=== PATIENT | female | born 1970 | race Caucasian/White ===

== ENCOUNTER 2020-10-07 15:29 | Outpatient (REF) | payer SELFPAY | END 2020-10-07 15:30 | disposition home or self-care (01) | LOC: HO.HAP 15:29 | PROVIDERS: Visit Provider Hearing Instrument Specialist | DX: Z13.89 Encounter for screening for other disorder (principal) ==

== ENCOUNTER 2021-02-25 09:10 | Outpatient (REF) | payer SELFPAY ==
--- NOTE | 2021-02-25 09:20 | MHC.AU.P13 ---
Hearing Instrument Problem Date of Visit: 02/25/21 Right Ear: Purchasing Expeditor: Phonak Model: Audeo M50-R Serial Number: [id number] Repair Warranty: 08/13/2022 Battery Size: Rechargeable Color: Sand Beige Focusing Machine Operator: 1P Type of Dome: Small Vented Type of Wax Guard: CeruShield Dispensed By: [facility] Date of Fittin05/29/2019 Left Ear: Purchasing Expeditor: Phonak Model: Audeo M50-R Serial Number: [id number] Repair Warranty: 08/13/2022 Battery Size: Rechargeable Color: Sand Beige Focusing Machine Operator: 1P Type of Dome: Small Vented Type of Wax Guard: CeruShield Dispensed By: [facility] Date of Fittin05/29/2019 Follow-Up Summary: Patient brought in aids-left not working. Both aids cleaned, wax guards changed, small vented domes replaced - both aids now amplifying clearly. Recommendations: Recommendations: Hearing instrument follow-up or maintenance as needed. Signature: Provider: LUIS Mckenzie-HIS
== END 2021-02-25 09:11 | disposition home or self-care (01) ==
LOC: HO.HAP 09:10
PROVIDERS: Visit Provider Internal Medicine
DX: Z46.1 Encounter for fitting and adjustment of hearing aid (principal)
CPT/HCPCS: V5267

== ENCOUNTER 2021-03-05 14:42 | Outpatient (REF) | payer SELFPAY ==
--- NOTE | 2021-03-05 16:26 | MHC.AU.HFU ---
Hearing Instrument Follow-Up- Binaural Date of Visit: 03/05/21 Undercollar Baster Used: Romansh- In Person Right Ear: Form Tamping Machine Operator: Phonak Model: Audeo M50-R Serial Number: [id number] Repair Warranty: 08/13/2022 Loss and Damage Warranty: 08/13/2022 Battery Size: Rechargeable Color: Sand Beige Software Business Analyst: 1P Type of Dome: Small Vented Type of Wax Guard: CeruShield Dispensed By: [facility] Date of Fittin05/29/2019 Left Ear: Form Tamping Machine Operator: Phonak Model: Audeo M50-R Serial Number: [id number] Repair Warranty: 08/13/2022 Loss and Damage Warranty: 08/13/2022 Battery Size: Rechargeable Color: Sand Beige Software Business Analyst: 1P Type of Dome: Small Vented Type of Wax Guard: CeruShield Dispensed By: [facility] Date of Fittin05/29/2019 Follow-Up Summary: Patient reports that despite having the hearing aids cleaned on 02/25, the left aid is intermittent. It doesn't always charge and sometimes it turns off randomly. She also notes that she is not hearing aid well from the left side. Otoscopy was clear. Recommend sending the left aid out for repair, however she is going to [place] soon and wants to wait until she gets back to send the aid for repair. Increased the overall gain of the left aid today and she reported significant improvement in sound quality. Also recommending she get an order for a hearing test from her PCP as it has been 2 years since her last hearing test. Recommendations: Patient will call to schedule a time to drop off the left aid to be sent for repair when she returns for vacation in March. Signature: Provider: Chance Morales, [facility]
== END 2021-03-05 14:43 | disposition home or self-care (01) ==
LOC: HO.HAP 14:42
PROVIDERS: Visit Provider Internal Medicine
DX: Z13.89 Encounter for screening for other disorder (principal)

== ENCOUNTER → 2021-05-21 10:05 | Outpatient (BNVA) | payer BC, SELFPAY | PROVIDERS: PCP Internal Medicine; Visit Provider Physician Assistant ==

== ENCOUNTER → 2021-05-24 07:02 | Outpatient (BNVA) | payer BC, SELFPAY | PROVIDERS: PCP Internal Medicine; Visit Provider Surgery ==

== ENCOUNTER 2021-05-25 08:35 | Outpatient (REF) | payer SELFPAY ==
--- NOTE | ~2021-05-25 | XR_ITS ---
EXAMINATION: XR CHEST CLINICAL INFORMATION: Obesity, unspecified. COMPARISON: None. TECHNIQUE: PA and lateral views of the chest are obtained. FINDINGS: Heart size is within normal limits. There is no congestion or focal consolidation. The bony thorax is unremarkable. XR/XR chest 2V IMPRESSION: Unremarkable examination.
--- NOTE | 2021-05-25 09:32 | ECG_ITS ---
Test Reason : OBESITY Blood Pressure : / mmHG Vent. Rate : 079 BPM Atrial Rate : 079 BPM P-R Int : 126 ms QRS Dur : 080 ms QT Int : 372 ms P-R-T Axes : 046 016 196 degrees QTc Int : 426 ms Normal sinus rhythm Possible Left atrial enlargement Left ventricular hypertrophy with repolarization abnormality Abnormal ECG No previous ECGs available Referred By: Johnathan Andrews Electronically Signed By:MARSHAL MARIE
[2021-05-25 10:32] LABS: MANUAL DIFF FLAG NO
[2021-05-25 10:35] LABS: Basophils Percent Auto 0.4 % (0-2); Eosinophils Absolute Auto 0.1 X10*3/uL (0.0-0.4); Eosinophils Percent Auto 0.7 % (0-4); Hematocrit 38.9 % (37-47); Hemoglobin 12.3 g/dl (12.0-16.0); Imm Gran Abs Auto 0.05 X10*3/uL (0.00-0.03); Imm Gran Pct Auto 0.7 % (0.0-0.4); Lymphocytes Absolute Auto 1.7 X10*3/uL (1.2-4.9); Lymphocytes Percent Auto 24.1 % (20-40); Mean Corpuscular HGB Conc 31.6 g/dl (31.0-35.0); Mean Corpuscular Hemoglobin 26.8 pg (27.0-33.0); Mean Corpuscular Volume 84.7 fL (80-98); Mean Platelet Volume 12.5 fL (9.4-12.3); Monocytes Absolute Auto 0.5 X10*3/uL (0.1-1.2); Monocytes Percent Auto 6.7 % (2-11); Neutrophils Absolute Auto 4.6 X10*3/uL (2.0-8.3); Neutrophils Percent Auto 67.4 % (45-73); Platelet Count 288 X10*3/uL (160-400); Red Blood Count 4.59 X10*6/uL (4.20-5.50); Red Cell Distribution Width 15.3 % (11.0-16.0); White Blood Count 6.8 X10*3/uL (4.8-10.8)
[2021-05-25 10:56] LABS: Alanine Aminotransferase 16 U/L (0-31); Albumin Level 4.2 g/dL (3.5-5.0); Alkaline Phosphatase 81 U/L (39-117); Anion Gap 12 (12-20); Aspartate Amino Transferase 18 U/L (5-31); Bilirubin Total 0.7 mg/dL (0.0-1.0); Blood Urea Nitrogen 14 mg/dL (9-16); C Reactive Protein 0.64 mg/dL (< or = 0.50); Calcium 9.6 mg/dL (8.4-10.2); Carbon Dioxide 26 mmol/L (22-29); Chloride 105 mmol/L (96-108); Cholesterol 250 mg/dL; Estimated Glomerular Filt Rate > 60; Glucose Random 90 mg/dL (60-115); HDL Cholesterol 39 mg/dL; Iron 77 mcg/dL (30-160); LDL Cholesterol Calculated 152 mg/dl; Percent Iron Saturation 23 % (15-50); Sodium 139 mmol/L (135-145); Total Iron Binding Capacity 332 mcg/dL (228-428); Total Protein 7.1 g/dL (6.5-8.0); Triglycerides 295 mg/dL; Unsaturated Iron Binding 255 ug/dL
[2021-05-25 11:17] LABS: TSH reflex Free T4 1.93 uIU/mL (0.32-4.0); Vitamin D 25-OH Total 23.1 ng/mL (>30)
[2021-05-25 11:43] LABS: Folate 17.8 ng/mL (> or = 4.0); Vitamin B12 443 pg/mL (200-900)
[2021-05-25 12:49] LABS: Ferritin 46 ng/mL (10-250)
[2021-05-25 14:33] LABS: Estimated Average Glucose 120 mg/dL; Hemoglobin A1c % 5.8 %
[2021-05-26 12:16] LABS: H Pylori Breath Test DETECTED (NOT DETECTED)
[2021-05-26 22:36] LABS: Insulin Level Total 16.2 uIU/mL
[2021-05-27 13:31] LABS: Calcium (PTHI) 9.5 mg/dL (8.6-10.2); PTHI 47 pg/mL (14-64)
[2021-05-28 00:12] LABS: Zinc 76 mcg/dL (60-130)
[2021-05-28 23:21] LABS: Vitamin A 47 mcg/dL (38-98)
[2021-05-29 11:32] LABS: Vitamin B1 12 nmol/L (8-30)
== END 2021-05-25 08:36 | disposition home or self-care (01) ==
LOC: HO.LAB 08:35
PROVIDERS: Surgery; PCP Internal Medicine; Visit Provider Dietitian, Registered
DX: E66.9 Obesity, unspecified (principal); Z68.38 Body mass index [BMI] 38.0-38.9, adult; K21.9 Gastro-esophageal reflux disease without esophagitis; E78.5 Hyperlipidemia, unspecified; I10 Essential (primary) hypertension; J45.909 Unspecified asthma, uncomplicated
CPT/HCPCS: 36415; 71046; 80053; 80061; 82306; 82607; 82728; 82746; 83013; 83036; 83525; 83540; 83970; 84425; 84443; 84590; 84630; 85025; 86140; 93005; 97802

== ENCOUNTER → 2021-06-14 08:26 | Outpatient (BNVA) | payer BC, SELFPAY | PROVIDERS: PCP Internal Medicine; Referring Provider Surgery; Visit Provider Dietitian, Registered | DX: E66.9 Obesity, unspecified (principal); Z68.37 Body mass index [BMI] 37.0-37.9, adult | CPT/HCPCS: 97803 ==

== ENCOUNTER → 2021-06-18 08:15 | Outpatient (BNVA) | payer BC, SELFPAY | PROVIDERS: PCP Internal Medicine; Visit Provider Surgery ==

== ENCOUNTER → 2021-07-13 08:02 | Outpatient (BNVA) | payer BC, SELFPAY | PROVIDERS: PCP Internal Medicine; Referring Provider Surgery; Visit Provider Dietitian, Registered ==

== ENCOUNTER 2021-08-04 08:05 | Outpatient (REF) | payer BC, SELFPAY | END 2021-08-04 08:06 | disposition home or self-care (01) | LOC: HO.US 08:05 | PROVIDERS: PCP Internal Medicine; Visit Provider Surgery | DX: Z13.89 Encounter for screening for other disorder (principal) ==

== ENCOUNTER 2021-08-16 08:54 | Outpatient (REF) | payer BC, SELFPAY ==
--- NOTE | ~2021-08-16 | FL_ITS ---
EXAMINATION: FL UPPER GI AIR-CONTRAST STUDY CLINICAL INFORMATION: Obesity. COMPARISON: None TECHNIQUE: Routine upper GI air-contrast study was performed in upright and lying position. FINDINGS: Following oral administration of thick barium and effervescent granules, there is normal propagation of bolus from the oral cavity through the pharynx, esophagus into stomach without any evidence of obstruction, narrowing or stricture. On placing patient supine and prone lying, the course, caliber and peristalsis of the stomach, duodenal bulb is normal. There is mild gastroesophageal reflux without hiatal hernia. The rest of the course, caliber and peristalsis of the stomach, duodenal bulb and the sweep is normal. FLUOROSCOPY TIME: 1.9 minutes DOSE AREA PRODUCT: 33.216 uGy-m2 (microgray-meter squared) FL/FL upper GI series IMPRESSION: Unremarkable upper GI air-contrast study.
--- NOTE | ~2021-08-16 | US_ITS ---
EXAMINATION: US COMPLETE ABDOMEN WITH LIVER ELASTOGRAPHY CLINICAL INFORMATION: Obesity. COMPARISON: None. TECHNIQUE: Real-time imaging of the abdominal viscera. Noninvasive ultrasound liver fibrosis assessment is performed using Toi ElastPQ point quantification shear wave elastography (pSWE) with a C5-2 MHz transducer. Multiple elastography samples are obtained. FINDINGS: PANCREAS: The visualized pancreatic head and body are normal in appearance. The remainder of the pancreas is obscured from visualization by the overlying bowel gas. ABDOMINAL AORTA: The proximal and mid aortic segments are normal in caliber. INFERIOR VENA CAVA: Visualized portions are normal. LIVER: The liver demonstrates normal size, contour and increased echogenicity. There is an anechoic cyst right hepatic lobe measuring 1.8 x 1.4 x 1.9 cm. No additional lesions seen. There is no intrahepatic ductal dilatation. The right lobe measures 15.8 cm in length. The left lobe measures 13.3 cm in length. Portal flow is hepatopetal. Shear wave liver elastography median stiffness is 1.45 m/s (reference: normal median stiffness is 1.3 m/s or less). IQR/median stiffness to assess sampling precision is 0.14 (reference: good quality data set is IQR/median stiffness of 0.15 or less). GALLBLADDER: Normal. The gallbladder is physiologically distended without evidence of stones, sludge, polyps, wall thickening or pericholecystic fluid. COMMON BILE DUCT: Normal in caliber measuring 0.3 cm in diameter. RIGHT KIDNEY: Normal. No hydronephrosis. No renal calculi or focal parenchymal lesions. The kidney measures 11.1 cm in maximum dimension. LEFT KIDNEY: There are linear echogenic strands seen in the medulla, question vascular calcification. No hydronephrosis. No renal calculi or focal parenchymal lesions. The kidney measures 10.3 cm in maximum dimension. SPLEEN: Normal. The spleen measures 10.3 cm in maximum dimension. FREE FLUID: None. US/US abdomen comp w elastography IMPRESSION: 1. Mildly echogenic liver with a right hepatic lobe cyst. 2. Mild echogenic linear structures in the left kidney medulla, likely vascular calcifications. 3. Liver elastography: Median liver stiffness measures 1.45 m/s. Findings suggestive of cACLD. REFERENCE: Society of Radiologists in Ultrasound Liver Stiffness Thresholds (2020): LIVER STIFFNESS THRESHOLDS: *Liver Stiffness equal or less than 1.3 m/s: High probability of being normal. *Liver Stiffness less than 1.7 m/s: In the absence of other known clinical signs, rules out compensated advanced chronic liver disease. *Liver Stiffness 1.7-2.1 m/s: Suggestive of compensated advanced chronic liver disease but need further test for confirmation. *Liver Stiffness over 2.1 m/s: Rules in compensated advanced chronic liver disease. *Liver Stiffness over 2.4 m/s: Suggestive of clinically significant portal hypertension. QUALITY OF DATA SET: *IQR/Median value equal or less than 0.15 implies a quality data set. *IQR/Median value over 0.15 implies a poor quality data set. SIGNIFICANT CHANGE FROM PRIOR EXAM: Significant change if liver stiffness measurement is 10% or greater from prior exam. OTHER CONSIDERATIONS: The stage of liver fibrosis may be overestimated in the setting of acute hepatitis, liver inflammation, elevated liver function tests, hepatic vascular congestion, obstructive cholestasis, non-fasting state, and infiltrative diseases such as amyloidosis and lymphoma. In some patients with NAFLD, the liver stiffness thresholds for compensated advanced chronic liver disease may be lower. In causes other than viral hepatitis and NAFLD, liver stiffness thresholds are not well established.
== END 2021-08-16 08:55 | disposition home or self-care (01) ==
LOC: HO.US 08:54
PROVIDERS: PCP Internal Medicine; Visit Provider Surgery
DX: A04.8 Other specified bacterial intestinal infections (principal); E66.9 Obesity, unspecified; Z68.37 Body mass index [BMI] 37.0-37.9, adult; E78.5 Hyperlipidemia, unspecified; I10 Essential (primary) hypertension; J45.909 Unspecified asthma, uncomplicated; K21.9 Gastro-esophageal reflux disease without esophagitis
CPT/HCPCS: 74240; 76705; 76981

== ENCOUNTER 2021-09-14 14:33 | Outpatient (REF) | payer BC, SELFPAY ==
[2021-09-15 12:33] LABS: H Pylori Breath Test Negative (Negative)
== END 2021-09-14 14:34 | disposition home or self-care (01) ==
LOC: HO.LNP 14:33
PROVIDERS: Visit Provider Surgery
DX: Z01.818 Encounter for other preprocedural examination (principal)
CPT/HCPCS: 83013

== ENCOUNTER → 2021-09-15 08:12 | Outpatient (BNVA) | payer BC, SELFPAY | PROVIDERS: PCP Internal Medicine; Referring Provider Internal Medicine; Visit Provider Dietitian, Registered | DX: E66.9 Obesity, unspecified (principal); Z68.37 Body mass index [BMI] 37.0-37.9, adult | CPT/HCPCS: 97803 ==

== ENCOUNTER → 2021-09-20 07:48 | Outpatient (BNVA) | payer BC, SELFPAY | PROVIDERS: PCP Internal Medicine; Visit Provider Surgery ==

== ENCOUNTER → 2021-10-13 13:51 | Outpatient (BNVA) | payer BC, SELFPAY | PROVIDERS: PCP Internal Medicine; Visit Provider Internal Medicine ==

== ENCOUNTER → 2021-10-14 08:12 | Outpatient (BNVA) | payer BC, SELFPAY | PROVIDERS: PCP Internal Medicine; Referring Provider Surgery; Visit Provider Dietitian, Registered ==

== ENCOUNTER → 2021-10-22 07:01 | Outpatient (BNVA) | payer BC, SELFPAY | PROVIDERS: PCP Internal Medicine; Visit Provider Surgery ==

== ENCOUNTER → 2021-11-03 08:31 | Outpatient (BNVA) | payer BC, SELFPAY | PROVIDERS: PCP Internal Medicine; Visit Provider Dietitian, Registered ==

== ENCOUNTER 2021-11-09 15:37 | Outpatient (REF) | payer BC, SELFPAY ==
--- NOTE | 2021-11-09 17:31 | PFT_ITS ---
Forced vital capacity 73, slightly decreased. FEV1 80%, KPQ74-87 is 109%, MVV 86%, all these flow volumes are normal. Bronchodilator therapy, no significant change was noted. Total lung capacity 71%. Residual volume 71%. Diffusion capacity 86%. CONCLUSION: [id number]-[id number] degree of restrictive pulmonary disorder. No significant obstructive airway disorder and no response to bronchodilator therapy. Clinical correlation recommended. MD SALINAS Duke/MODKelley / [id number]
== END 2021-11-09 15:38 | disposition home or self-care (01) ==
LOC: HO.RESP 15:37
PROVIDERS: PCP Internal Medicine; Visit Provider Internal Medicine
DX: R06.00 Dyspnea, unspecified (principal); J45.909 Unspecified asthma, uncomplicated; G47.33 Obstructive sleep apnea (adult) (pediatric)
CPT/HCPCS: 94060; 94727; 94729

== ENCOUNTER → 2021-11-19 08:17 | Outpatient (BNVA) | payer BC, SELFPAY | PROVIDERS: PCP Internal Medicine; Visit Provider Dietitian, Registered | DX: E66.9 Obesity, unspecified (principal) | CPT/HCPCS: 97803 ==

== ENCOUNTER → 2021-11-29 08:07 | Outpatient (BNVA) | payer BC, SELFPAY | PROVIDERS: PCP Internal Medicine; Visit Provider Surgery ==

== ENCOUNTER → 2022-01-03 15:28 | Outpatient (BNVA) | payer BC, SELFPAY | PROVIDERS: PCP Internal Medicine; Visit Provider Internal Medicine | DX: Z13.89 Encounter for screening for other disorder (principal) ==

== ENCOUNTER 2022-03-18 09:06 | Outpatient (REF) | payer SELFPAY | END 2022-03-18 09:07 | disposition home or self-care (01) | LOC: HO.HAP 09:06 | PROVIDERS: Visit Provider Internal Medicine | DX: Z13.89 Encounter for screening for other disorder (principal) ==

== ENCOUNTER → 2022-10-12 15:02 | Outpatient (BNVA) | payer OTHER, SELFPAY | PROVIDERS: PCP Internal Medicine; Visit Provider Internal Medicine | DX: Z13.89 Encounter for screening for other disorder (principal) ==

== ENCOUNTER 2022-10-24 14:31 | Outpatient (REF) | payer OTHER, SELFPAY ==
--- NOTE | 2022-10-25 07:46 | MHC.AU.AHA ---
Adult Audiological Evaluation Date of Visit: 10/24/22 Cutter Gas Used: [place] Phone Cutter Gas #[id number] Reason for Appointment: Audiologic re-evaluation due to reported significant decrease in hearing ability of the left ear with recent severe vertigo. Eileen notes pain on the left side of her head radiating down to the neck. She is now taking 3 Meclizine a day to try to control the vertigo. Despite the increase in medication, symptoms continue and interfering with daily function. Eileen has a long-standing history of asymmetric hearing loss with the most recent hearing test in 2019 showing a mild dropping to profound sensorineural hearing loss for the right ear and a moderate to profound sensorineural hearing loss for the left ear. Unfortunately, speech discrimination testing was not performed at that time and previous test results are not available for review. In 2019, Eileen was seen by ENT Dr. Veto Hector and medically cleared for binaural hearing aids. Eileen reports approximately 9 years ago she was evaluated by the ENT for a lump in the left side of her neck which she was told the lump was benign and no treatment recommended. PCP note indicates a Thyroid Nodule. Other medical history includes Cardiomyopathy, Hypertension, hyperlipidemia, and asthma. Eileen also notes that although she has a problems with vertigo for many years, she has not had a Vestibular Rehabilitation Assessment or other imaging studies of the inner ear/brain. Medical History: Medication List: Per PCP report - Advair Diskus, Albuterol, Amlodipine, Atorvastatin, Clonidine, Doxycycline Hyclate, Escitalopram, Hydrochlorothiazide-Lisinopril, Loratadine, Meclizine, and Lorazepam (PRN) Hearing Instrument History- Right Ear: B Operator: [employer] M 50-R FlyBridGe Serial #[id number] Battery Size: Rechargeable Repair Warranty: 08/13/2022 Loss and Damage Warranty: 08/13/2022 Service Plan: Dispensed By: [facility] Date of Fittin05/29/2019 Hearing Instrument History- Left Ear: B Operator: [employer] M 50-R FlyBridGe Serial #[id number] Battery Size: Rechargeable Warranty: 08/13/2022 Loss and Damage Warranty: 08/13/2022 Service Plan: Dispensed By: [facility] Date of Fittin05/29/2019 Otoscopy: Right Ear: Unremarkable Left Ear: Unremarkable Tympanometry: Tympanometry performed due to: To assess integrity of the middle ear system Right Ear: Normal Middle Ear System (Type A) Left Ear: Normal Middle Ear System (Type A) Hearing Evaluation: Transducer(s) Used: Circumaural Headphones, Bone Conduction Method: Conventional Audiometry Stimuli Used: Pure Tones Right Ear: Description of Hearing: Moderate dropping to profound sensorineural hearing loss with 72% speech understanding at 80 dB HL Left Ear: Description of Hearing: Severe to profound sensorineural hearing loss with 0% speech discrimination ability at 90 and 100 dB HL Binaural speech testing is 64% which suggests there is no significant binaural interference from the left ear. Comparison: Compared to 2019, there is no significant decrease for the right ear hearing. However, left ear thresholds have decreased 15-20 dB at 250-2000 Hz with no speech understanding. Unfortuantely, there are no previous assessments to compare speech discrimination and determine how the left ear understanding has changed over time. Recommendations: Further work-up of the increased vertigo and change in hearing Referral to Ear, Nose, and Throat is strongly recommended with possible Vestibular Testing (VNG or ENG). Referral for Vestibular Rehabilitation Audiological re-evaluation in 6 months. Reminder card will be sent. Hearing aid maintenance performed today. Diagnosis: Primary Diagnosis: H90.3 Bilateral Sensorineural Hearing Loss Secondary Diagnosis: Vertigo Services Performed: Comprehensive Audiological Evaluation (CPT 66998) Tympanometry (CPT 15020) Signature: Provider: Yoselyn Blair, [facility]
== END 2022-10-24 14:32 | disposition home or self-care (01) ==
LOC: HO.SH 14:31
PROVIDERS: Visit Provider Internal Medicine
DX: Z01.118 Encounter for examination of ears and hearing with other abnormal findings (principal); H90.3 Sensorineural hearing loss, bilateral
CPT/HCPCS: 92557; 92567

== ENCOUNTER 2022-12-23 15:01 | Outpatient (REF) | payer SELFPAY ==
--- NOTE | 2022-12-23 15:54 | MHC.AU.HFU ---
Hearing Instrument Follow-Up- Binaural Date of Visit: 12/23/22 Cold Reduction Roller Used: Yes In House [place] Right Ear: Lead Driver: Phonak Brooklyneo M 50-R Sand Beige Serial #[id number] Repair Warranty: 08/13/2022 Loss and Damage Warranty: 08/13/2022 Service Plan: Battery Size: Rechargeable Color: Sand Beige Boat Outboard Engine Mechanic: 1P Type of Dome: Small Vented Type of Wax Guard: CeruShield Dispensed By: [facility] Date of Fittin05/29/2019 Left Ear: Lead Driver: Phonak Brooklyneo M 50-R Sand Beige Serial #[id number] Repair Warranty: 08/13/2022 Loss and Damage Warranty: 08/13/2022 Service Plan: Battery Size: Rechargeable Color: Sand Beige Boat Outboard Engine Mechanic: 1P Type of Dome: Small Vented Type of Wax Guard: CeruShield Dispensed By: [facility] Date of Fittin05/29/2019 Follow-Up Summary: Hearing Aid Problem - Patient reports after the last visit in September 2022, she went to the [facility]. She had a severe sinus infection affecting the left side more than right and was hospitalized for one week. She has an appointment scheduled with ENT of [facility]. In the meantime, she has had greatly fluctuating hearing with intermittent drainage from the right ear and getting significant feedback from the left aid. Otoscopy shows moisture and inflammation in the left ear. Patient insists she cannot go without using the left aid. She also notes the larger medium vented dome placed on the aid last visit is causing ear pressure so she wants to go back to the small vented dome. Cleaned receivers and changed wax guards and domes small vented domes. Because of the significant feedback, I decreased the left aid overall gain 6 dB with some improvement and patient reports improved comfort with the small vented dome. Patient's phone no longer connects with the Integrated biometrics ashwini. I showed her how to Forget Device in the ashwini and re-pair aids with ashwini. Recommendations:: Please contact our clinic with any questions or concerns Diagnosis Code(s):Primary Diagnosis: H90.3 Bilateral Sensorineural Hearing Loss Signature:Provider: Yoselyn Blair, [facility]
== END 2022-12-23 15:02 | disposition home or self-care (01) ==
LOC: HO.HAP 15:01
PROVIDERS: Visit Provider Internal Medicine
DX: Z13.89 Encounter for screening for other disorder (principal)

== ENCOUNTER 2023-10-06 11:55 | Outpatient (REF) | payer SELFPAY | END 2023-10-06 11:56 | disposition home or self-care (01) | LOC: HO.HAP 11:55 | PROVIDERS: Visit Provider Internal Medicine | DX: Z46.1 Encounter for fitting and adjustment of hearing aid (principal); H90.3 Sensorineural hearing loss, bilateral | CPT/HCPCS: V5267 ==

== ENCOUNTER 2024-02-16 10:42 | Outpatient (REF) | payer OTHER, SELFPAY ==
--- NOTE | 2024-02-16 13:35 | MHC.AU.MED ---
Medical Clearance for Hearing Instrumentation Date: 02/16/24 Patient Name: Eileen Dimas Date of : 1970 Primary Care Provider: Loli Morris MD We have seen your patient on 02/16/24 and have determined that they are a candidate for amplification (See accompanying report). Specifically, they would benefit from: Hearing aid use in both ears There is a statute that addresses Medical Evaluation Requirements prior to fitting a patient with a hearing aid. According to [place] statute 265 CMR:6.03(1), (a) General. Except as provided in 265 CMR 6.03(1)(b), a light rail train operator shall not sell a hearing aid unless the prospective user has presented to the light rail train operator a written statement signed by a licensed physician that states that the patient's hearing loss has been medically evaluated and the patient may be considered a candidate for a hearing aid. The medical evaluation must have taken place within the preceding six months. Please note: Due to the [place] Statute referenced above, we cannot accept a signature other than that of a licensed physician. PRINCIPAL NETWORK ARCHITECT and PA signatures cannot be accepted. I am in agreement with the above recommendation. There is no medical contraindication for hearing instrumentation. Physician Signature Date Physician Name (Printed)
--- NOTE | 2024-02-20 12:28 | MHC.AU.HA1 ---
Hearing Aid Evaluation Date of Visit: 02/16/24 Business Strategist Used: Italian- In Person Historical Information: Description of Hearing: Right Ear: Moderate sloping to profound sensorineural hearing loss; Left Ear: Severe to profound sensorineural hearing loss Current personal amplification information: Phonak Audeo M50-Rs fit in May 2019 Summary: Eileen is ready to pursue new hearing aids due to the age of her current pair. She reported her batteries are not lasting as long as they previously did. Her left hearing aid is reportedly muffled and when she increases the volume, it whistles. Eileen is currently using vented domes. Also discussed asymmetric word recognition. Eileen opted to trial same style/senior lead java developer; however, recommended ear molds. Impressions taken, bilaterally, without incident (in hold drawer). Will need to submit for prior approval through insurance once medical clearance is received. Hearing Aid Prescription: Based on the individual?s shared listening needs, communication environments, dexterity, desire for connectivity, and personal preferences, the following prescription for amplification has been made: Right ear: Make, Model, Color: Phonak Audeo L70-R Color: Sand Beige Battery Size: Rechargeable Rn Military/Slim Tube: 1P Type of Earmold/Dome/CShell/SlimTip: c-shell Left ear: Left ear prescription to be same as Right Hearing Aid above: Make, Model, Color: Phonak Audeo L70-R Color: Sand Beige Battery Size: Rechargeable Rn Military/Slim Tube: 1P Type of Earmold/Dome/CShell/SlimTip: c-shell Accessories/Assistive Technology: Shotweld Operator Plan of Care: Patient wishes to purchase hearing aids as prescribed Action Taken/Action Needed: Prior authorization to be requested. Medical Clearance to be requested from PCP/ENT. Hearing Instrument Fitting to be scheduled when materials arrive Primary Diagnosis: H90.3 Bilateral Sensorineural Hearing Loss Signature: Provider: Yoselyn Freeman, [facility]
== END 2024-02-16 10:43 | disposition home or self-care (01) ==
LOC: HO.SH 10:42
PROVIDERS: PCP Internal Medicine; Visit Provider Internal Medicine
DX: Z01.118 Encounter for examination of ears and hearing with other abnormal findings (principal); Z46.1 Encounter for fitting and adjustment of hearing aid; H90.3 Sensorineural hearing loss, bilateral
CPT/HCPCS: 92552; 92556; 92591; V5275

== ENCOUNTER 2024-03-11 13:47 | Outpatient (REF) | payer OTHER, SELFPAY ==
--- NOTE | 2024-03-11 14:45 | MHC.AU.HA2 ---
Hearing Instrument Fitting- Adult- Binaural Date of Visit: 03/11/24 Hearing Instruments Dispensed: Right Ear: Make, Model, Color, Serial Number: Germán Lebrono L70-R SN: [id number] Color: Sand Beige Plumbing And Heating Mechanic Repair Warranty: 04/02/2027 Plumbing And Heating Mechanic Loss and Damage Warranty: 04/02/2027 [facility] Service Plan: 03/11/2025 Battery Size: Rechargeable Call Center Professional/Slim Tube: 1UP Earmold/Dome/CShell/SlimTip: c-shell SN: [id number] Nila: 07/01/2024 Type of Wax Guard: Cerustop Left Ear: Make, Model, Color, Serial Number: Germán Lebrono L70-R SN: [id number] Color: Sand Beige Plumbing And Heating Mechanic Repair Warranty: 04/02/2027 Plumbing And Heating Mechanic Loss and Damage Warranty: 04/02/2027 [facility] Service Plan: 03/11/2025 Battery Size: Rechargeable Call Center Professional/Slim Tube: 1UP Earmold/Dome/CShell/SlimTip: c-shell SN: [id number] Nila: 07/01/2024 Type of Wax Guard: Cerustop Accessories/Assistive Technology: Phonak geophysical observer ease SN: [id number] Summary of Fitting: Ordered power domestic helper for right hearing aid; however, came as UP. Ran feedback analyzer and real ear measures. Comfortable at real ear settings. Some echo of own voice but tolerable. Discussed occlusion with new c-shells (compared to old domes). Other voices perfect and clearer compared to old hearing aids. Eileen is motivated to acclimate to both physical fit and sound quality of new hearing aids. Reviewed care and use including rechargeability, manually turning on/off, and changing wax guards. As a long-time hearing aid user, Eileen is otherwise familiar with general maintenance. Paired to cell phone and [employer]is ashwini. Eileen has old hearing aids to keep as back up. Recommendations: A hearing instrument follow-up was scheduled. Diagnosis Code(s): Primary Diagnosis: H90.3 Bilateral Sensorineural Hearing Loss Signature: Provider: Yoselyn Freeman, [facility]
== END 2024-03-11 13:48 | disposition home or self-care (01) ==
LOC: HO.HAP 13:47
PROVIDERS: Visit Provider Internal Medicine
DX: Z46.1 Encounter for fitting and adjustment of hearing aid (principal); H90.3 Sensorineural hearing loss, bilateral
CPT/HCPCS: V5011; V5020; V5160; V5261; V5264

== ENCOUNTER 2024-04-03 10:05 | Outpatient (REF) | payer OTHER, SELFPAY ==
--- NOTE | 2024-04-03 14:28 | MHC.AU.HA3 ---
Hearing Instrument Follow-Up- Binaural Date of Visit: 04/03/24 Right Ear: Brian, Model, Color, Serial Number: Germán Valle L70-R SN: [id number] Color: Sand Beige Studio Technician Video Operator Repair Warranty: 04/02/2027 Studio Technician Video Operator Loss and Damage Warranty: 04/02/2027 [facility] Service Plan: 03/11/2025 Battery Size: Rechargeable Software Sales Consultant/Slim Tube: 1UP Earmold/Dome/CShell/SlimTip:c-shell SN: [id number] Nila: 07/01/2024 Type of Wax Guard: Cerustop Dispensed By: [facility] Date of Fittin03/11/2024 Left Ear: Brian, Model, Color, Serial Number: Germán Valle L70-R SN: [id number] Color: Sand Beige Studio Technician Video Operator Repair Warranty: 04/02/2027 Studio Technician Video Operator Loss and Damage Warranty: 04/02/2027 [facility] Service Plan: 03/11/2025 Battery Size: Rechargeable Software Sales Consultant/Slim Tube: 1UP Earmold/Dome/CShell/SlimTip: c-shell SN: [id number] Nila: 07/01/2024 Type of Wax Guard: Cerustop Dispensed By: [facility] Date of Fittin03/11/2024 Follow-Up Summary: Eileen was wearing her old hearing aids. Although Eileen noticed significant improvement in her hearing with the new hearing aids, the amount of noise seemed to induce dizziness/vertigo. A few days after being fit with the new hearing aids, she had an episode where she blacked out. When she could see again, the whole room was spinning. Reportedly has had multiple episodes of vertigo since then and consequently could not use the new hearing aids. She reported that she has had these episodes for about two years now with no resolution or diagnosis. Recently, the dizziness has worsened. She also reported the left side of her neck is swollen and she has pain that extends from behind her left ear down into her neck. She also reported her old PCP discovered a ball on the left side of her neck via ultrasound a few years ago. At that time, they were planning to monitor the lump. However, since then, Eileen moved states and changed PCPs and reported she has not had any additional ultrasounds yet. Strongly recommended referral to ENT for noise-induced vertigo with left-sided otalgia. When she was able to wear the hearing aids, the ear molds reportedly slipped out of her ears and she heard a constant static noise in both hearing aids. Could not perform listening check or make programming adjustments today as hearing aids were . Plan to send both hearing aids and c-shells to [facility] to add canal locks to c-shells and change right general studies program chair to P, as originally ordered. Discussed balance between comfort and audibility, especially if too much noise induces dizziness. Eileen reported she would prefer to adjust the left one only as that seems to be the side with the problem - will readdress when hearing aids/cshells return from [facility]. Recommendations: Patient will be contacted when materials have arrived. Diagnosis Code(s): Primary Diagnosis: H90.3 Bilateral Sensorineural Hearing Loss Signature: Provider: Yoselyn Freeman, [facility]
== END 2024-04-03 10:06 | disposition home or self-care (01) ==
LOC: HO.HAP 10:05
PROVIDERS: Visit Provider Internal Medicine
DX: Z13.89 Encounter for screening for other disorder (principal)

== ENCOUNTER 2024-04-24 14:01 | Outpatient (REF) | payer OTHER, SELFPAY | END 2024-04-24 14:02 | disposition home or self-care (01) | LOC: HO.HAP 14:01 | PROVIDERS: Visit Provider Internal Medicine | DX: Z13.89 Encounter for screening for other disorder (principal) ==

== ENCOUNTER 2024-05-09 08:54 | Outpatient (REF) | payer OTHER, SELFPAY | END 2024-05-09 08:55 | disposition home or self-care (01) | LOC: HO.HAP 08:54 | PROVIDERS: Visit Provider Internal Medicine | DX: Z13.89 Encounter for screening for other disorder (principal) ==

== ENCOUNTER 2024-08-06 11:01 | Outpatient (REF) | payer OTHER, SELFPAY | END 2024-08-06 11:02 | disposition home or self-care (01) | LOC: HO.HAP 11:01 | PROVIDERS: Visit Provider Internal Medicine | DX: Z13.89 Encounter for screening for other disorder (principal) ==

== ENCOUNTER 2025-01-03 11:02 | Outpatient (REF) | payer OTHER, SELFPAY ==
--- OUTSIDE RECORDS SUMMARY | 2025-01-03 12:01 | XMS_ITS | Data Portability ---
Author Organization [place] - [facility], Allergy Address [address] [address] Assessment Encounter Date Assessment Date Assessment LastModified by Organization Details LastModified Time 10/04/2024 10/04/2024 53 yo F with hearing loss presents for recurrent vertigo. Had episode over the summer with LOC. Had workup at that time. MRI was limited due to braces. Seen 2019 for vertigo as well. Most recent MRI with contrast in 2018 showed no mass. There is asymmetric hearing loss. I counseled her that a otologic cause of vertigo would not lead to LOC. I did recommend updated MRI with contrast, this may require evaluation with her dentist regarding the braces which limit the exam. We did discuss that her symptoms are suggestive of Meniere's. [email or web address] Not available 10/14/2024 07:54:04 Plan of Treatment Reminders Order Date Submit Date Provider Last Modified By Organization Details Last Modified Time Details Appointments None recorded. Lab None recorded. Referral None recorded. Procedures None recorded. Surgeries None recorded. Imaging MRI, brain + internal auditory canal, w/wo contrast - has braces 2024 025 pgustavson [facility] ([facility]), [address] [facility], [place], [address], 10:00:13 Medication Orders None recorded. Patient TargetsNo targets recorded. Patient InstructionsNo instructions recorded. Reason for Referral None Reported. Results Created Date Observation Date Name Description Value Unit Range Abnormal Flag Note LastModifiedBy Organization Detail LastModifiedTime 10/15/1910/12/2024 MRI, brain + brain stem, w/wo contr ast [facility] Access ion Number : [id number] Patien t Name: Eileen Gutierrez Record Number : [id number] Date of : 1970 Date of Exam: 2024 Referr ing Physic jaswinder: Dhaval Quinonez [facility] [place] [address], [place] [address] [place] [place] [address] Exam: MR Brain (C-/C+ ) CPT 22953 Room Descri ption: [facility] Pion 3T MR Brain (C-/C+ ) CPT 47654 INDICA TION / CLINIC AL QUESTI ON: Reason For Exam: H90.3 - Sensor ineura l hearin g loss, bilate ral, , has braces \E E\[facility] (MRI, BRAIN + CARTRIDGE LOADING OPERATOR AL AUDITO RY CANAL, W/WO CONTRA ST) Reason For Exam: H90.3 - Sensor ineura l hearin g loss, bilate ral, , has braces \E E\[facility] (MRI, BRAIN + CARTRIDGE LOADING OPERATOR AL AUDITO RY CANAL, W/WO CONTRA ST) TECHNI QUE: MRI of the brain with attent ion to the internal affairs investigator al audito ry canals was perfor med with and withou t contra st utiliz ing sagitt al T1, axial T2, 3D axial T2 CUBE, axial and poe l T1, and post-c ontras t axial and poe l T1-jamar ghted sequen karina. 20 mL Dotare m intrav enous contra st was admini stered . COMPAR ADRIANA: None. FINDIN GS: Image qualit y is degrad ed by motion and suscep tibili ty artifa ct. IAC: There is no mass or abnorm al enhanc ement in the internal affairs investigator al audito ry canals or cerebe llopon allen angles . Course and calibe r of the 7th and 8th crania l nerves is normal bilate rally. Fluid signal is preser srinivas in the inner ear struct ures bilate rally. The visibl e portio ns of the brain demons trate demons trate normal signal . Some portio ns are obscur ed by suscep tibili ty artifa ct. BRAIN and EXTRA- AXIAL SPACES : No signif icant abnorm ality of the visual ized portio ns of the brain and extra- axial spaces . EXTRAC RANIAL SOFT TISSUE S: Visual ized portio ns of the extrac ranial soft tissue s are unrema rkable . BONES: Visual ized marrow signal is preser srinivas. IMPRES CECILY: No retroc ochlea r abnorm ality to explai n the patien t?s sympto msPraneeth Bishop onical ly Signed By: Peggy hernandez [facility] ([facility]) [address] [facility] [place], [address], 11/05/2024 16:20:53 Result Notes None recorded. Problems Name Problem SNOMED Code Status Onset Date Resolution Date Notes Provider Name and Address Organization Details Recorded Time Dizziness and giddiness 481915342 Active 2018 Dizziness and giddiness ; Note: Date Diagnosed : 03/26/2019 3:13 PM (R42) Not Available [facility] 4 03:12:31 Inadequat e sleep hygiene 850648728 Active 2019 Inadequat e sleep hygiene; Note: Date Diagnosed : 11/05/2019 11:15 AM (Z72.821) Not Available [facility] 4 03:12:31 Non-toxic uninodula r goiter 367904779 Active 2019 Nontoxic single thyroid nodule; Note: Date Diagnosed : 11/05/2019 11:15 AM (E04.1) Not Available [facility] 4 03:12:31 Abnormal findings on diagnosti c imaging of skull and head 403694089 Active 2022 Abnormal findings on diagnosti c imaging of skull and head, not elsewhere classifie d; Note: Date Diagnosed : 01/18/2023 2:28 PM (R93.0) Not Available [facility] 4 03:12:32 Dyspnea 964372492 Active 2019 Shortness of breath; Note: Date Diagnosed : 11/05/2019 11:15 AM (R06.02) Not Available [facility] 4 03:12:32 Otalgia of left ear 6321388022 Active 2022 Otalgia, left ear; Note: Date Diagnosed : 01/18/2023 2:28 PM (H92.02) Not Available [facility] 4 03:12:32 Sensorine ural hearing loss of bilateral ears 894010621 Active 2018 Sensorine ural hearing loss, bilateral ; Note: Date Diagnosed : 03/26/2019 3:10 PM (H90.3) Not Available [facility] 4 03:12:32 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 Procedures Surgical History Date Name Laterality Status Provider Name and Address Organization Details Recorded Time 10/04/2024 Air & Speech Audio with Tymps (57238, 18211 & 02772) completed SOFYA ATKINS, [facility] [address] [facility],[address], [address], [facility] - [facility] 10/04/2024 15:15:36 Imaging Results Imaging Date Name Status LastModified by Organiz ation Details LastModified Time 10/12/2024 MRI, brain + brain stem, w/wo contrast completed [facility] ([facility]) [address] [place], [address], 11/05/2024 16:20:53 Procedure Notes None recorded. Medical Equipment None Reported. Allergies No known drug allergies Medications Name Sig Start Date Stop Date Status Note LastModified by Organization Details LastModified Time furosemide 40 mg tablet TAKE 1 TABLET BY MOUTH ONCE DAILY active Not Available Not Available No t Available atorvastati n 80 mg tablet TAKE 1 TABLET BY MOUTH ONCE DAILY AT BEDTIME active Not Available Not Available No t Available clonidine HCl 0.1 mg tablet TAKE 1 TABLET BY MOUTH 4 TIMES DAILY active Not Available Not Available No t Available carvedilol 12.5 mg tablet TAKE 1 TABLET BY MOUTH TWICE DAILY active Not Available Not Available No t Available azithromyci n 250 mg tablet TAKE 2 TABLETS BY MOUTH ON DAY 1, AND THEN TAKE 1 TABLET BY MOUTH ONCE A DAY ON DAY 2 THROUGH DAY 5 10/04 completed Not Available Not Available Not Available ibuprofen 800 mg tablet TAKE 1 TABLET BY MOUTH EVERY 8 HOURS active Not Available Not Available No t Available citalopram 10 mg tablet TAKE 1 TABLET BY MOUTH ONCE DAILY active Not Available Not Available No t Available senna 8.6 mg tablet TAKE 2 TABLETS BY MOUTH ONCE DAILY AT BEDTIME NEEDED FOR CONSTIPAT ION active Not Available Not Available No t Available amlodipine 5 mg tablet TAKE 1 TABLET BY MOUTH ONCE DAILY active Not Available Not Available No t Available aspirin 81 mg tablet,stephon yed release TAKE 1 TABLET BY MOUTH ONCE DAILY active Not Available Not Available No t Available amoxicillin 500 mg tablet TAKE 2 TABLETS BY MOUTH EVERY 8 HOURS FOR 5 DAYS 10/04 completed Not Available Not Available Not Available hydromorpho ne 2 mg tablet TAKE 1 TABLET BY MOUTH EVERY 4 HOURS NEEDED FOR PAIN FOR SEVERE POST-OPER ATIVE PAIN active Not Available Not Available No t Available meclizine 25 mg tablet TAKE 1 TABLET BY MOUTH THREE TIMES DAILY NEEDED FOR DIZZINESS active Not Available Not Available No t Available Ear Drops (carbamide peroxide) 6.5 % INSTILL 5 DROPS INTO EACH EAR TWICE DAILY FOR 4 DAYS 10/04 completed Not Available Not Available Not Available Vivelle-Dot 0.0375 mg/24 hr transdermal patch active Not Available Not Available Not Available Vivelle-Dot 0.05 mg/24 hr transdermal patch APPLY 1 PATCH TOPICALLY EVERY MONDAY AND EVERY MONDAY active Not Available Not Available No t Available omeprazole 20 mg capsule,del ayed release TAKE 1 CAPSULE BY MOUTH ONCE DAILY active Not Available Not Available No t Available polyethylen e glycol 3350 17 gram/dose oral powder MIX 17 GRAMS OF POWDER IN 8 OUNCES OF WATER AND DRINK ONCE DAILY active Not Available Not Available No t Available lisinopril 40 mg tablet TAKE 1 TABLET BY MOUTH ONCE DAILY active Not Available Not Available No t Available ondansetron 4 mg disintegrat ing tablet DISSOLVE 1 TABLET IN MOUTH EVERY 8 HOURS NEEDED FOR NAUSEA FOR UP TO 7 DAYS. HOLD UNDER TONGUE AND ALLOW TABLET TO DISINTEGR ATE active Not Available Not Available No t Available fluticasone propionate 50 mcg/actuati on nasal spray,suspe nsion USE 1 SPRAY(S) IN EACH NOSTRIL TWICE DAILY active Not Available Not Available No t Available Ventolin HFA 90 mcg/actuati on aerosol inhaler INHALE 2 PUFFS BY MOUTH 4 TIMES DAILY NEEDED FOR WHEEZING active Not Available Not Available No t Available simethicone 80 mg chewable tablet TAKE 1 TABLET BY MOUTH 4 TIMES DAILY NEEDED FOR GAS active Not Available Not Available No t Available Vitals Date Recorded Body height Body mass index (BMI) Body weight Provider Name and Address Organization Details Last Updated DateTime 10/04/2024 157.48 cm 41.1 kg/m2 809357.49 g Ann Gates [place] - [facility] 10/04/2024 15:36:05 Social History None recorded. Functional Status None recorded. Mental Status None recorded. Family History Nothing Reported. Medical History Condition Response Cancer Y Hypertension Y Asthma Y Gynecological HistoryNo gynecological history recorded. Obstetrics History GPAL:G 0 P 0 0 0 0 Past Encounters Encounter ID Performer Location Encounter Start Date Encounter Closed Date Diagnosis/Indication Diagnosis SNOMED-CT Code Diagnosis ICD10 Code Diagnosis Note [id number] DHAVAL FINNEGAN MD [facility] [address] [address] 10/04/2024 15:10:10 10/04/2024 16:02:41 Dizziness and giddiness 884605053 R42 Sensorineu ral hearing loss of bilateral ears 702889393 H90.3 Right Ear:Mild to profound SNHL with good speech discrimina tion.Type A tympanogra m.Left Ear:Severe to profound SNHL with no speech discrimina tion.Type A tympanogra m. Health Concerns Section Related Observation LastModified by Organization Detai ls LastModified Time None Recorded Concern Status LastModified by Organization Details LastModified Time None Recorded Advance Directives Directive None Recorded Payers Encounter Date Sequence Insurance Name Policy Number Policy Ng Covered Member ID Ng Member ID Guarantor Name 10/04/[address] [place] [address] [id number] Eileen Cee [id number] Eileen Cee Notes Date Note Type Note Provider Name and Address Organization Details Recorded Time 10/04/2024 text/html 53 yo F with candace tigo, Was told she can't get MRI until braces are out (3 more years) Getting vertigo causing unconsciousness went to the hospital over the summer Last time with spinning vertigo over the summer Previously once a year, now twice in quick succession ?Meniere's? PV (2022, Dr. Mccartney) I saw her in 2019 for a tongue ulcer which resolved. she pretenses today for f/u of left sinus findings on imaging done during a recent hospitalization in September. InJanuary she presented to the hospital with dizziness. She had a head CT which showed bilateral ethmoid sinus opacification L>R and diffuse soft tissue obstructionof the left OMU. MRI the same day showed mild sinus disease on the left and no suspicious nasal cavity mass. Today she reports pain the left side of her facewhich radiates to her left ear. She does not smoke. She was treated with abx for sinusitis and reports that it helped but the symptoms have recurred.Exam was benign. Nasal endo was notable for left septal deviation but no polyps or purulence. Larynx was normal. I recommend a dedicated sinus CT (had headCT prior) to assess for chronic sinusitis or interval improvement. We obtained a CT which showed resolution of her prior left maxillary and ethmoid opacification.Her left otalgia has no clear cause. I reviewed her prior imaging as well including head CT, brain MRI, head and neck MRI all of which showed no tumors. Herotalgia is likely due to neuropathic pain or migraine. I suggested she discuss this with her PCP. (2018 Dr. Mccartney) Ms. Richard Cee is a 48 year old female who presents with hearing loss and dizziness. The patient reports a family history ofhearing loss, including her son who has been wearing hearing aids since the age of 9. She had hearing loss occur gradually over time. The patientdoes not report any ear infections. She has had some otorrhea bilaterally. The patient had vertigo, where the room spins every few months, the lastepisode being a month ago. She had an MRI of the brain done at [facility] recently. MRI of the brain with contrast performed in December 2017 was negative for intracranial pathology.History of tongue surgery performed at the age of 7 in [place] for cancer. DHAVAL FINNEGAN MD [address] [place] [address], [phone], [facility] - [facility] 10/14/2024 07:55:10 OBGyn Episode No OBEpisode recorded.
--- OUTSIDE RECORDS SUMMARY | 2025-01-03 12:01 | XMS_ITS ---
Author Name [facility] Organization Unknown Care Team Organization Name Specialty Phone Email Start Date End Da te [employer] 07/09/2022 0 05/13/2024
--- OUTSIDE RECORDS SUMMARY | 2025-01-03 12:01 | XMS_ITS | Clinical Summary ---
Author Organization [facility] Facility Address [address] [place] [address], [place] [address] Care Team Providers Care Library Supervisor Name Role Phone Loli Morris MD Primary Care Provider Allergies No known active allergies Medications EQ Pain Reliever 500 MG tablet TAKE 2 TABLETS BY MOUTH EVERY 8 HOURS 10/28/2022 Active cloNIDine (CATAPRES) 0.3 MG tablet Take 0.3 mg by mouth in the morning and 0.3 mg in the evening. 10/23/2022 Active fluticasone (FLONASE) 50 MCG/ACT nasal spray USE 2 SPRAY(S) IN EACH NOSTRIL ONCE DAILY 10/28/2022 Active lisinopril 20 MG tablet Take 20 mg by mouth 1 (one) time each day 10/28/2022 Active omeprazole (PriLOSEC) [address] capsule Take 20 mg by mouth 1 (one) time each day 10/28/2022 Active amLODIPine (NORVASC) 10 MG tablet Take 1 tablet (10 mg total) by mouth 1 (one) time each day 90 tablet 3 01/02/2023 Active Active Problems Problem Noted Date Diagnosed Date Hypertension 01/02/2023 Family History Medical History Relation Comments Heart attack Brother Heart attack Mother Relation Status Comments Brother Mother Social History Tobacco Use Types Packs/Day Years Used Date Smoking Tobacco: Never Passive Smoke Exposure: Never Smokeless Tobacco: Never Tobacco Cessation:Counseling Given: No Alcohol Use Standard Drinks/Week Comments Never 0 (1 standard drink = 0.6 oz pur e alcohol) Comments Unknown Sex and Gender Information Value Date Recorded Sex Assigned at Not on file Legal Sex Female 8:27 AM EST Gender Identity Not on file Sexual Orientation Not on file Last Filed Vital Signs Vital Sign Reading Time Taken Comments Blood Pressure 170/88 01/02/2023 2:03 PM EDT Pulse 86 01/02/2023 2:03 PM EDT Temperature - - Respiratory Rate - - Oxygen Saturation 98% 01/02/2023 2:03 PM EDT Inhaled Oxygen Concentration - - Weight 95.3 kg (210 lb) 01/02/2023 2:03 PM EDT Height - - Body Mass Index - - Plan of Treatment Health Maintenance Due Date Last Done Comments Breast Cancer Screening 1970 Pneumococcal Vaccine: Peds ( 0 to 5 Years) and At-Risk Patients (6 to 49 Years) (1 of 2 - PCV) 1978 Hepatitis B Vaccine (1 of 3 - 19+ 3-dose series) 12/16 Colorectal Cancer Screening: Annual FOBT 2021 Colorectal Cancer Screening: Colonoscopy 2021 Colorectal Cancer Screening: Sigmoidoscopy 2021 Influenza Vaccine (Season Ended) 2025 Care Teams Library Supervisor Relationship Specialty Start Date End Date Loli Morris MD [address] [place] [id number] PCP - General Internal Medicine 10/27/22
--- OUTSIDE RECORDS SUMMARY | 2025-01-03 12:01 | XMS_ITS | Clinical Summary ---
Author Organization [address] [place] [address] Address [address] [place] [address] Phone Care Team Providers Care Battalion Fire Chief Name Role Phone Loli Morris MD Primary Care Provider Allergies No known active allergies Medications albuterol 2.5 mg /3 mL (0.083 %) nebulizer solution Take 1 Vial by nebulization every 6 hours. Active albuterol sulfate (ProAir RespiClick) 90 mcg/actuation aerosol powdr breath activated Inhale 108 mcg into the lungs every 6 hours as needed (wheezing). 9 Active amLODIPine (NORVASC) 10 mg tablet Take 10 mg by mouth daily. Active budesonide-formo teroL (SYMBICORT) 160-4.5 mcg/actuation inhaler Inhale 2 Puffs into the lungs 2 times daily. Active escitalopram (LEXAPRO) 10 mg tablet Take 1 Tab by mouth daily. 9 Active fluticasone-salm eterol (ADVAIR DISKUS) 250-50 mcg/dose diskus inhaler Inhale 1 Puff into the lungs every 12 hours. Active lisinopril-hydro CHLOROthiazide (PRINZIDE,ZESTOR ETIC) 20-25 mg per tablet Take 2 tablets by mouth daily. 9 Active loratadine 10 mg capsule Take 1 Cap by mouth daily as needed (allergy). 9 Active meclizine (ANTIVERT) 25 mg tablet Take 1 tablet by mouth 2 times daily. Active meloxicam (MOBIC) 15 mg tablet Take 1 tablet by mouth daily. Active omeprazole (PriLOSEC) [address] capsule Take by mouth. Take 1 capsule by mouth daily 4 Active silver sulfADIAZINE (SSD) 1 % cream Apply topically 1 (one) time each day. 50 g 5 026 Active Active Problems Problem Noted Date Diagnosed Date Palpitation 06/23/2021 Overview (07/01/2024): Last Assessment & Plan: We did discuss her palpitations. Is unclear what the etiology of these are. She has them quite often and does feel symptomatic with these. We did discuss doing a 24-hour Holter monitor for further evaluation of these. 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 She is on a max dose of Lipitor. We did discuss adding Zetia 10 mg to see if this will help get her numbers at goal. We did discuss the side effects of this. If she has any she will let us know. If she tolerates this we will recheck a lipid panel in 2 to 3 months time. Hypertension 02/14/2018 Overview (07/01/2024): Last Assessment & Plan: Her blood pressure is elevated here. She gets high readings at home. Have asked her to bring her cuff in next time so we can verify the accuracy of her cuff. We are likely going to need to make adjustments in her blood pressure medication to get her blood pressure under better control. I will make these changes once we have more information on her Holter monitor and echocardiogram so we can direct her therapy based on these findings. She will continue to work on diet exercise and low salt intake. Asthma 12/27/2017 Cardiomegaly 06/06/2017 Overview (07/01/2024): Last Assessment & Plan: She does have a report of having an enlarged heart based on a chest x-ray. This is not a very accurate way to determine this or make this diagnosis. We did discuss doing an echocardiogram to further evaluate this. She did have an echocardiogram in 2017 which showed LVH. She does have a history of longstanding high blood pressure and this is likely the cause of these findings. Again the echocardiogram will give us more information on the size of her left ventricle pumping function and wall thickness. She has no evidence of heart failure or volume overload at this time. Anxiety 04/28/2017 Tongue cancer ([facility] V24, [facility] V28) 016 Encounters Date Type Department Care Team Description 12/23/2024 1:45 PM EDT Consult Orthopedic Surgery - [address] [address] Drake Lloyd DPM Cellulitis of right foot (Primary Dx); Ingrown right greater toenail from Last 3 Months Immunizations Name Administration Dates Next Due Pneumococcal conjugate 13 va lent (Prevnar 13, PCV13) 2mo and older 11/14/2016 Surgical History Surgery Date Site/Laterality Comments SECTION PROCEDURE: HISTORICAL HYSTERECTOMY PROCEDURE: HISTORICAL HYSTERECTOMY OTHER SURGICAL HISTORY PROCEDURE: [place] BIOPSY VESTIBULE MOUTH; COMMENT: Tongue biopsy sample Medical History Medical History Date Comments Hypertension 02/14/2018 DX:Hypertension Hyperlipidemia 02/14/2018 DX:Hyperlipidemi a Anxiety 04/28/2017 DX:Anxiety Asthma 12/27/2017 DX:Asthma Cardiomegaly 06/06/2017 DX:Cardiomegaly Seasonal allergic rhinitis 04/12/2018 DX:Se asonal allergic rhinitis Tongue cancer ([facility] V24, [facility] V28) 11/20/19 16 DX:Tongue cancer (HCC) Family History Medical History Relation Name Comments Diabetes Aunt Hypertension Brother stroke Coronary artery disease Father Hypertension Father stroke Asthma Son Relation Name Status Comments Aunt Brother Father Son Social History Tobacco Use Types Packs/Day Years Used Date Smoking Tobacco: Never Smokeless Tobacco: Never Alcohol Use Standard Drinks/Week Comments No 0 (1 standard drink = 0.6 oz pur e alcohol) Comments Unknown Sex and Gender Information Value Date Recorded Sex Assigned at Not on file Legal Sex Female 3:30 AM EST Gender Identity Not on file Sexual Orientation Not on file Obstetrics History Last Filed Vital Signs Vital Sign Reading Time Taken Comments Blood Pressure 172/62 05/27/2024 11:33 AM EDT L Arm Pulse 104 05/27/2024 11:33 AM EDT Temperature - - Respiratory Rate - - Oxygen Saturation - - Inhaled Oxygen Concentration - - Weight 101 kg (222 lb) 12/23/2024 2:17 PM EDT Height 157.5 cm (5' 2 ) 12/23/2024 2:17 PM EDT Body Mass Index 40.6 12/23/2024 2:17 PM EDT Plan of Treatment Upcoming Encounters Date Type Department Care Team ([facility] st Contact Info) Description 01/14/2025 10:45 AM EDT Office Visit Orthopedic Surgery - [place] [address] [facility] [address] [place] [phone] Drake Lloyd, NINO 175 [facility] [address] [place] [address] Health Maintenance Due Date Last Done Comments Breast Cancer Screening 1972 Hepatitis A Vaccines (1 of 2 - Risk 2-dose series) 12/17/1991 Hepatitis B Vaccines (1 of 3 - 19+ 3-dose series) 12/17/1991 Zoster Vaccines (1 of 2) 12/17/1991 Cervical Cancer Screening: P ap Smear 1993 Pneumococcal Vaccine: 50+ Years (2 of 2 - PPSV23) 01/09/2017 11/14/2016 Pneumococcal Vaccine: Pediatrics (0 to 5 Years) and At-Risk Patients (6 to 64 Years) (2 of 2 - PPSV23) 01/09/2017 11/14/2016 Cholesterol Screening (Lipid Panel) 08/28/2022 Colorectal Cancer Screening: Colonoscopy 08/28/2022 Depression Screening 08/28/2022 HIV Screening 08/28/2022 Hepatitis C Screening 08/28/2022 Social Influencers of Health Screening 08/28/2022 Hypertension/CHF/CAD Annual BMP Blood Test 09/07/2022 01/10/2019 COVID-19 Vaccine (4 - 2023-2 5 season) 2024 09/02/2021, 02/01/2021, 01/11/2021 Influenza Vaccine (Season Ended) 2025 09/15/2023 DTaP,Tdap,and Td Vaccines (2 - Td or Tdap) 09/15/2033 09/15/2023 HIB Vaccines Aged Out No longer eligi ble based on patient's age to complete this topic HPV Vaccines Aged Out No longer eligi ble based on patient's age to complete this topic IPV Vaccines Aged Out No longer eligi ble based on patient's age to complete this topic MMR Vaccines Aged Out No longer eligi ble based on patient's age to complete this topic Meningococcal ACWY Vaccine Aged Out N o longer eligible based on patient's age to complete this topic Meningococcal B Vaccine Aged Out No l onger eligible based on patient's age to complete this topic RSV Immunization Patients Under 20 months Aged Out No longer eligible b ased on patient's age to complete this topic Varicella Vaccines Aged Out No longer eligible based on patient's age to complete this topic Procedures Procedure Name Priority Date/Time Associated Diagnosis Comments ANNUAL BMP BLOOD TEST Routine 01/10/2019 from Last 3 Months or Most Recently Relevant to Health Maintenance Results * Annual BMP Blood Test (01/10/2019) Annual BMP Blood Test abstracted Historical Provider HEALTH MAINTENANCE Final Result from Last 3 Months or Most Recently Relevant to Health Maintenance Insurance [facility] MEDICAID ADVANTAGE Advance Directives Documents on File Type Date Recorded Patient Route Jumper Expl anation Health Care Decision (hx) 11/12/2015 AD MCKEON DIRECTIVE Health Care Decision (hx) 11/12/2015 AD MCKEON DIRECTIVE Health Care Decision (hx) 11/12/2015 AD MCKEON DIRECTIVE Health Care Decision (hx) 11/12/2015 AD MCKEON DIRECTIVE Health Care Decision (hx) 11/12/2015 AD MCKEON DIRECTIVE Health Care Decision (hx) 11/12/2015 AD MCKEON DIRECTIVE Health Care Decision (hx) 11/12/2015 AD MCKEON DIRECTIVE Health Care Decision (hx) 11/12/2015 AD MCKEON DIRECTIVE Health Care Decision (hx) 11/12/2015 AD MCKEON DIRECTIVE Health Care Decision (hx) 11/12/2015 AD MCKEON DIRECTIVE Health Care Decision (hx) 11/12/2015 AD MCKEON DIRECTIVE Health Care Decision (hx) 11/08/2015 AD MCKEON DIRECTIVE Health Care Decision (hx) 11/08/2015 AD MCKEON DIRECTIVE Health Care Decision (hx) 11/08/2015 AD MCKEON DIRECTIVE Health Care Decision (hx) 11/08/2015 AD MCKEON DIRECTIVE Health Care Decision (hx) 11/08/2015 AD MCKEON DIRECTIVE Health Care Decision (hx) 11/08/2015 AD MCKEON DIRECTIVE Health Care Decision (hx) 11/08/2015 AD MCKEON DIRECTIVE Health Care Decision (hx) 11/08/2015 AD MCKEON DIRECTIVE Health Care Decision (hx) 11/08/2015 AD MCKEON DIRECTIVE Health Care Decision (hx) 11/08/2015 AD MCKEON DIRECTIVE Health Care Decision (hx) 11/08/2015 AD MCKEON DIRECTIVE Care Teams Battalion Fire Chief Relationship Specialty Start Date End Date Loli Morris MD PCP - General Internal Medicine 06/15/21
--- OUTSIDE RECORDS SUMMARY | 2025-01-03 12:01 | XMS_ITS | Continuity of Care Document ---
Author Organization [facility] Address [address] [place] [address] Phone Care Team Providers Care Network Applications Specialist Name Role Phone Tomas OD Nader Unavailable Unavailable Allergies, Adverse Reactions, Alerts Substance Reaction Status Criticality No Known Allergies Active No Inform ation Medications Medication Instructions Dosage Effective Dates (start - stop) Status Comments acetaminophen (unknown strength) Not Available - Active ibuprofen (unknown strength) Not Available - Active methotrexate (unknown strength) Not Available - Active vit d (unknown strength) Not Available - Active DEXTRAN (unknown strength) Not Available - Active amlodipine (unknown strength) Not Available - Active Plaquenil (unknown strength) Not Available - Active pantoprazole (unknown strength) Not Available - Active Procedures Procedure Date DISPENSED CTL REFRACTION CONTACT LENS FITTING EYE EXAM & TREATMENT Cntct lens hydrophil extend DISPENSED CTL REFRACTION CONTACT LENS FITTING EYE EXAM & TREATMENT Cntct lens hydrophilic toric DISPENSED CTL REFRACTION CONTACT LENS FITTING EYE EXAM & TREATMENT Cntct lens hydrophil extend DIRECT MAILING POSTOP FOLLOW-UP VISIT Cntct lens hydrophil extend REFRACTION Ctl Fitting - Sph Monovision Jarek-14-2021 EYE EXAM, NEW PATIENT Advance Directives Directive Yes / No Effective Date File Name No Information Encounters Encounter Description Practice Location Reason(s) For Visit Diagnoses Date Provider Providers Copied on Encounter [facility], [address], [place], [place], [id number], [place] tel:[phone] Ivan CTL/Optic al/Misc No Information 4 Tomas Boycein. [address], [place], [id number] , [place]. tel: [phone] [facility], [address], [place], [place], [id number], [place] tel:[phone] [place] Complete exam (chief complaint)c ontact lens evaluation (chief complaint) Hypermetropia, bilateralRegular astigmatism, bilateralPresbyopia Meibomian gland dysfunction (MGD) of both eyes 4 Tomas Boycein. [address], [place], [id number] , [place]. tel: [phone] [facility], [address], [place], [id number], [place] tel:[phone] [place] CTL/Optic al/Misc No Information 3 Tomas Boycein. [address], [place], [id number] , [place]. tel: [phone] [facility], [address], [place], [id number], [place] tel:[phone] Ivan blurry vision (chief complaint)C TLS (chief complaint) Hypermetropia, bilateralRegular astigmatism, bilateralPresbyopia Meibomian gland dysfunction (MGD) of both eyes 3 Tomas Boycein. [address], [place], [id number] , [place]. tel: [phone] [facility], [address], [place], [id number], [place] tel:[phone] Ivan No Information 2 Williams Sukumar. [address], [place], [address], [place]. tel: [phone] [facility], [address], [place], [place], [id number], [place] tel:[phone] Ivan Complete exam (chief complaint)c ontact lens evaluation (chief complaint) Hypermetropia, bilateralRegular astigmatism, bilateralPinguecula , bilateral Mar-0 - 2 Williams Sukumar. [address], [place], [address], [place]. tel: [phone] [facility], [address], [place], [id number], [place] tel:[phone] Ivan CTL/Optic al/Misc No Information 1 Williams Patino. [address], [place], [address], [place]. tel: [phone] [facility], [address], [place], [id number], [place] tel:[phone] [place] ctl check (chief complaint) PresbyopiaHypermetr opia, bilateralRegular astigmatism, bilateral 1 Williams Patino. [address] [place] [address], [address], [place]. tel: [phone] [facility], [address], [place], [id number], [place] tel:[phone] Ivan blurry vision (chief complaint) PresbyopiaHypermetr opia, bilateralRegular astigmatism, bilateral 1 Williams Patino. [address], [place], [address], [place]. tel: [phone] Family History Family Member Type Diagnosis Age At Onset No Information Payers Payer name Insurance type Covered constitution party ID Authoriza tion(s) No Information Social History Type Description Quantity Date Captured Comments Sex Female Smoking Status No Information Chief Complaint And Reason For Visit No Information Reason For Referral Reason For Referral No Information Plan Of Treatment Date Type Action Status Patient Education Farsightedness (Hyperop ia): Care Instructions completed Patient Education Farsightedness (Hyperop ia): Care Instructions completed Patient Education Presbyopia: Care Instru ctions completed History Of Present Illness Encounter Date Complaint History Of Prese nt Illness Complete exam The 53 year old patient presents for evaluation of Complete exam in the right eye and left eye. Pt denies having any vision changes since last visit. Using unknown otc gel drops for dry eyes. Here for comprehensive eye exam. contact lens evaluation The mara ent is present for evaluation of contact lens evaluation in the right eye and left eye. Pt is currently wearing BFE monthly lenses. C/o pain to OS with ctls for at least 20 mins twice a week. Stable vision. Here to update rx. CTLS The patient is p resent for evaluation of CTLS in the right eye and left eye. Pt is happy with current brand and fit of ctls. Pt is requesting to update ctls today.Pt aware of fees. blurry vision The 51 year old female presents for evaluation of blurry vision in the right eye and left eye. Pt notes increased blurriness to DV? NV since ELIAZAR.Pt denies pain, but notes continued dryness to OU. Pt uses TheraTears recommended by PCP. Complete exam The 50 year old female presents for evaluation of Complete exam in the right eye and left eye.Pt states VA is stable. Pt denies pain or discomfort. contact lens evaluation The mara ent is present for evaluation of contact lens evaluation in the right eye and left eye.Pt states satisfaction with current fit and brand of CTL. ctl check The 49 year old female presents for evaluation of ctl check in the right eye and left eye.Pt came in stating that she lost her ctls. [employer] lenses (OD +4.50 sph and OS +3.00 sph) were inserted in office today.. Pt c/o blurry distance vision OD, no vision issues with OS ctl. likes fit and comfort of ctls. blurry vision The 49 year old female presents for evaluation of blurry vision in the right eye and left eye.c/o blurry distance and near vision with gls sometimes. Pt's ELIAZAR was 2 years ago, wears gls multimedia author, rx is 2 yrs old. c/o gls is not working as good as it used to. also having redness, irritation, and itching OU for a while. no current gtts. Functional Status Date Functional Assessmen t No Information Instructions Date Instruction Additional Infor juan Impression/Plan Impression/Plan Impression/Plan Impression/Plan Impression/Plan Assessments Type Assessment Date No Information Patient Care Teams Name Effective Dates (start - stop) Status Members No Information
--- NOTE | 2025-01-03 13:31 | MHC.AU.HA3 ---
Hearing Instrument Follow-Up- Binaural Date of Visit: 01/03/25 Right Ear: rBian, Model, Color, Serial Number: Germán Valle [id number] SN: [id number] Color: Sand Beige Python Django Developer Repair Warranty: 04/02/2027 [employer] Django Developer Loss and Damage Warranty: 04/02/2027 [facility] Service Plan: 03/11/2025 Battery Size: Rechargeable Circle Cutting Saw Operator/Slim Tube: 1UP Earmold/Dome/CShell/SlimTip:sm vented Type of Wax Guard: Cerustop Dispensed By: [facility] Date of Fittin03/11/2024 Left Ear: Brian, Model, Color, Serial Number: Germán Valle [id number] SN: [id number] Color: Sand Beige Python Django Developer Repair Warranty: 04/02/2027 [employer] Developer Loss and Damage Warranty: 04/02/2027 [facility] Service Plan: 03/11/2025 Battery Size: Rechargeable Circle Cutting Saw Operator/Slim Tube: 1UP Earmold/Dome/CShell/SlimTip: small vented Type of Wax Guard: Cerustop Dispensed By: [facility] Date of Fittin03/11/2024 Follow-Up Summary: Eileen is seen for hearing aid problem, reports that if she touches her ear or moves her glasses her call gets dropped, also notes touching her ear can activate Anette on her phone. Notes frustration with volume as well- noting asymmetric hearing loss, she reports that if she just wants to turn one up the other one gets too loud. Cleaned aids, replaced domes and wax guards, listening check positive. Deactivated tap control. Activated independent volume control. Recommendations: Recommendations: Hearing instrument follow-up or maintenance as needed. Diagnosis Code(s): Primary Diagnosis: H90.3 Bilateral Sensorineural Hearing Loss Signature: Provider: Yoselyn Cruz, [facility]
== END 2025-01-03 11:03 | disposition home or self-care (01) ==
LOC: HO.HAP 11:02
PROVIDERS: Visit Provider Internal Medicine
DX: Z13.89 Encounter for screening for other disorder (principal)

== ENCOUNTER 2025-01-03 11:34 | Outpatient (REF) | payer SELFPAY ==
--- OUTSIDE RECORDS SUMMARY | 2025-01-03 12:36 | XMS_ITS | Clinical Summary ---
Author Organization [address] [place] [address] Address [address] [place] [address] Phone Care Team Providers Care Undercollar Maker Name Role Phone Loli Morris MD Primary [...] at this time. Anxiety 04/28/2017 Tongue cancer ([facility] V24, [facility] V28) 016 Encounters Date Type Department Care Team Description 12/23/2024 1:45 PM EDT Consult Orthopedic Surgery - [address] [address] Drake Lloyd DPM Cellulitis of right foot (Primary Dx); Ingrown right greater toenail from Last 3 Months Immunizations Name Administration Dates Next Due Pneumococcal conjugate 13 va lent (Prevnar 13, PCV13) 2mo and older 11/14/2016 Surgical History Surgery Date Site/Laterality Comments SECTION PROCEDURE: HISTORICAL HYSTERECTOMY PROCEDURE: HISTORICAL HYSTERECTOMY OTHER SURGICAL HISTORY PROCEDURE: [place] BIOPSY VESTIBULE MOUTH; COMMENT: Tongue biopsy sample Medical History Medical History Date Comments Hypertension 02/14/2018 DX:Hypertension Hyperlipidemia 02/14/2018 DX:Hyperlipidemi a Anxiety 04/28/2017 DX:Anxiety Asthma 12/27/2017 DX:Asthma Cardiomegaly 06/06/2017 DX:Cardiomegaly Seasonal allergic rhinitis 04/12/2018 DX:Se asonal allergic rhinitis Tongue cancer ([facility] V24, [facility] V28) 11/20/19 16 DX:Tongue cancer (HCC) Family [...] Upcoming Encounters Date Type Department Care Team ([facility] st Contact Info) Description 01/14/2025 10:45 AM EDT Office Visit Orthopedic Surgery - [place] [address] [facility] [address] [place] [address] Drake Lloyd, NINO [address] [facility] [address] [place] [address] Health Maintenance Due Date Last Done Comments [...] Most Recently Relevant to Health Maintenance Insurance [facility] MEDICAID ADVANTAGE Advance Directives Documents on File Type Date Recorded Patient Oil Lease Operator Expl anation Health Care Decision (hx) 11/12/2015 [...] (hx) 11/08/2015 AD MCKEON DIRECTIVE Care Teams Undercollar Maker Relationship Specialty Start Date End Date Loli Morris MD PCP - General Internal Medicine 06/15/21
--- OUTSIDE RECORDS SUMMARY | 2025-01-03 12:36 | XMS_ITS | Clinical Summary ---
Author Organization [facility] Facility Address [address] [place] [address], [place] [address] Care Team Providers Care Inspector Motor Vehicles Name Role Phone Loli Morris MD Primary [...] Influenza Vaccine (Season Ended) 2025 Care Teams Inspector Motor Vehicles Relationship Specialty Start Date End Date Loli Morris MD [address] [place] [address] PCP - General Internal Medicine 10/27/22
--- OUTSIDE RECORDS SUMMARY | 2025-01-03 12:36 | XMS_ITS | Continuity of Care Document ---
Author Organization [facility] Address [address] [place] [address] Phone Care Team Providers Care Dope Sprayer Name Role Phone Tomas OD Nader Unavailable [...] [facility], [address], [place], [place], [id number], [place] tel:[phone] Ivan CTL/Optic al/Misc No Information 4 Tomas Boycein. [address], [place], [id number] , [place]. tel: [phone] [facility], [address], [place], [place], [id number], [place] tel:[phone] [place] Complete exam (chief complaint)c ontact lens evaluation (chief complaint) Hypermetropia, bilateralRegular astigmatism, bilateralPresbyopia Meibomian gland dysfunction (MGD) of both eyes 4 Tomas Boycein. [address], [place], [id number] , [place]. tel: [phone] [facility], [address], [place], [id number], [place] tel:[phone] [place] CTL/Optic al/Misc No Information 3 Tomas Boycein. [address], [place], [id number] , [place]. tel: [phone] [facility], [address], [place], [id number], [place] tel:[phone] Ivan blurry vision (chief complaint)C TLS (chief complaint) Hypermetropia, bilateralRegular astigmatism, bilateralPresbyopia Meibomian gland dysfunction (MGD) of both eyes 3 Tomas Boycein. [address], [place], [id number] , [place]. tel: [phone] [facility], [address], [place], [id number], [place] tel:[phone] Ivan No Information 2 Williams Sukumar. [address], [place], [address], [place]. tel: [phone] [facility], [address], [place], [place], [id number], [place] tel:[phone] Ivan Complete exam (chief complaint)c ontact lens evaluation (chief complaint) Hypermetropia, bilateralRegular astigmatism, bilateralPinguecula , bilateral Mar-0 - 2 Williams Sukumar. [address], [place], [address], [place]. tel: [phone] [facility], [address], [place], [id number], [place] tel:[phone] Ivan CTL/Optic al/Misc No Information 1 Williams Patino. [address], [place], [address], [place]. tel: [phone] [facility], [address], [place], [id number], [place] tel:[phone] [place] ctl check (chief complaint) PresbyopiaHypermetr opia, bilateralRegular astigmatism, bilateral 1 Williams Patino. [address] [place] [address], [address], [place]. tel: [phone] [facility], [address], [place], [id number], [place] tel:[phone] Ivan blurry vision (chief complaint) PresbyopiaHypermetr opia, bilateralRegular astigmatism, bilateral 1 Williams Patino. [address], [place], [address], [place]. tel: [phone] Family History Family Member Type Diagnosis Age [...] was 2 years ago, wears gls multimedia production assistant, rx is 4 yrs old. c/o gls [...]
== END 2025-01-03 11:35 | disposition home or self-care (01) ==
LOC: HO.HAP 11:34
PROVIDERS: Visit Provider Internal Medicine
DX: Z46.1 Encounter for fitting and adjustment of hearing aid (principal)
CPT/HCPCS: V5267